=== PATIENT | female | born 1980 | race Caucasian/White ===

== ENCOUNTER 2019-11-22 08:06 | Inpatient (IN) | payer OTHER ==
[~2019-11-22] VITALS: Ht 167.6 cm; Wt 64.0 kg
[2019-11-22 08:52] LABS: BASOPHILS # (AUTO) 0.04 x10^3/uL (0-0.1); BASOPHILS % (AUTO) 1 % (0-1); EOSINOPHILS # (AUTO) 0.11 x10^3/uL (0-0.4); EOSINOPHILS % (AUTO) 2 % (1-7); LYMPHOCYTES # (AUTO) 2.01 x10^3/uL (1-3.4); LYMPHOCYTES % (AUTO) 35 % (22-44); MD NO; MEAN CORPUSCULAR HEMOGLOBIN 33.8 pg (27.0-34.8); MEAN CORPUSCULAR HGB CONC 33.9 g/dL (32.4-35.8); MEAN CORPUSCULAR VOLUME 99.6 fL (80-100); MEAN PLATELET VOLUME 7.8 fL (7.4-10.4); MONOCYTES # (AUTO) 0.49 x10^3/uL (0.2-0.8); MONOCYTES % (AUTO) 9 % (2-9); NEUTROPHILS # (AUTO) 3.12 x10^3/uL (1.8-6.8); NEUTROPHILS % (AUTO) 54 % (42-75); PLATELET COUNT 266 x10^3/uL (130-400); RED BLOOD COUNT 4.18 x10^6/uL (3.82-5.3); RED CELL DISTRIBUTION WIDTH 13.7 % (9.6-15.2)
--- NOTE | 2019-11-22 08:55 | NUR ---
REPORT RECEIVED FROM HARSHAD CORRAL; PT TO CT AT THIS TIME.
--- NOTE | 2019-11-22 08:58 | NUR ---
TO CT VIA [facility]
[2019-11-22] MEDS ORDERED: ENALAPRILAT 1.25 MG/ML, 2ML IV ONE (09:00)
[2019-11-22 09:03] LABS: ALANINE AMINOTRANSFERASE 25 U/L (12-78); ALBUMIN 4.1 g/dL (3.4-5.0); ANION GAP 8 mmol/L (5-15); CALCIUM 8.4 mg/dL (8.5-10.1); CHLORIDE 105 mmol/L (98-107); CREATININE 0.79 mg/dL (0.55-1.02)
--- NOTE | 2019-11-22 09:04 | NUR ---
REPORT TO MANDO PATRICIA
[2019-11-22 09:05] LABS: ALKALINE PHOSPHATASE 86 U/L (45-117); BILIRUBIN,TOTAL 0.4 mg/dL (0.2-1.0)
--- NOTE | 2019-11-22 09:08 | NUR ---
PT BACK FROM CT AT THIS TIME.
[2019-11-22] MEDS ORDERED: ENALAPRILAT 1.25 MG/ML, 1ML ONE (09:11)
--- NOTE | 2019-11-22 09:25 | NUR ---
pt on all monitors, pt is in sinus bernarda rate 50s with no ectopy on lunchroom monitor. pt iks a&ox4, repss even and unlabored, denies pain. 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 pt reports numbness to face is completely resolved, reports tingling still to left arm. awaiting CT and lab results at this time. call light in reach, at bedside.
--- NOTE | 2019-11-22 09:40 | NUR ---
MD informed that pt is still having tingling to left upper extremity, pt's symptomology discussed with MD. MD states pt does not meet criteria for code neuro at this time. MD informed of updated VS s/p vasotec. all results back, awaiting further orders at this time.
[2019-11-22] MEDS ORDERED: hydroxyzine PO (10:45)
--- NOTE | 2019-11-22 11:12 | NUR ---
REPORT GIVEN TO HARSHAD GRADY, PT AWAITING TRANSPORT AT THIS TIME.
--- NOTE | 2019-11-22 11:30 | NUR ---
PT TRANSFERRED TO ROOM 403, PT A&O, RESPS EVEN AND UNLABORED, NADN AT TRANSPORT. S/O WITH PT AT TRANSFER. PT HAS NO COMPLAINTS AT THIS TIME.
[2019-11-22 12:30] VITALS: BP 125/82
[2019-11-22] MEDS ORDERED: ACETAMINOPHEN 325 MG TABLET PO PRN (13:00)
[2019-11-22] MEDS ORDERED: POTASSIUM CHLORIDE 20 MEQ TAB.ER.PRT PO ONE (13:30)
[2019-11-22] MEDS ORDERED: GADOTERATE 7.5 MMOL/15 ML SYR ONE (13:45)
[2019-11-22 17:02] LABS: AMPHETAMINE SCREEN, URINE Negative (Negative); BARBITURATE SCREEN, URINE Negative (Negative); BENZODIAZEPINE SCREEN, URINE Negative (Negative); CANNABINOID SCREEN, URINE Positive (Negative); COCAINE SCREEN, URINE Negative (Negative); METHADONE SCREEN, URINE Negative (Negative); OPIATE SCREEN, URINE Negative (Negative)
[2019-11-22 20:00] VITALS: BP 141/90
[2019-11-23 05:25] LABS: BASOPHILS # (AUTO) 0.02 x10^3/uL (0-0.1); BASOPHILS % (AUTO) 0 % (0-1); EOSINOPHILS % (AUTO) 2 % (1-7); LYMPHOCYTES # (AUTO) 2.17 x10^3/uL (1-3.4); LYMPHOCYTES % (AUTO) 38 % (22-44); MD NO; MEAN CORPUSCULAR HEMOGLOBIN 33.9 pg (27.0-34.8); MEAN CORPUSCULAR HGB CONC 33.6 g/dL (32.4-35.8); MEAN CORPUSCULAR VOLUME 100.8 fL (80-100); MEAN PLATELET VOLUME 8.2 fL (7.4-10.4); MONOCYTES # (AUTO) 0.55 x10^3/uL (0.2-0.8); MONOCYTES % (AUTO) 10 % (2-9); NEUTROPHILS # (AUTO) 2.83 x10^3/uL (1.8-6.8); NEUTROPHILS % (AUTO) 50 % (42-75); PLATELET COUNT 244 x10^3/uL (130-400); RED BLOOD COUNT 4.02 x10^6/uL (3.82-5.3); RED CELL DISTRIBUTION WIDTH 13.1 % (9.6-15.2)
[2019-11-23 05:38] LABS: CHLORIDE 108 mmol/L (98-107)
[2019-11-23 05:49] LABS: ANION GAP 5 mmol/L (5-15); CREATININE 0.69 mg/dL (0.55-1.02)
[2019-11-23 05:50] LABS: ALANINE AMINOTRANSFERASE 26 U/L (12-78); ALBUMIN 3.8 g/dL (3.4-5.0); ALKALINE PHOSPHATASE 70 U/L (45-117); BILIRUBIN,TOTAL 0.6 mg/dL (0.2-1.0); CHOL/HDL RATIO 3.7; CHOLESTEROL, TOTAL 246 mg/dL (140-239); HDL CHOL % 27 % (28-40); HDL CHOLESTEROL (DIRECT) 66 mg/dL (40-60); LDL CHOLESTEROL,CALCULATED 154 mg/dL (54-169); LDL/HDL RATIO 2.3 (0.5-3.0); TOTAL PROTEIN 7.5 g/dL (6.4-8.2); TRIGLYCERIDES 130 mg/dL (50-200); VLDL CHOLESTEROL 26 mg/dL (0-25)
[2019-11-23] MEDS ORDERED: ASPIRIN 81 MG TABLET EC PO SCH (06:00)
[2019-11-23 07:15] VITALS: BP 135/93
[2019-11-23] MEDS ORDERED: ATOR40TA78 PO (10:49)
[2019-11-23] MEDS ORDERED: ASPI81TA45 PO (10:49)
== END 2019-11-23 12:11 | disposition home or self-care (01) | DRG 103 ==
LOC: ED 10:07 → EDIP 10:08 → ED 10:09 → 4WST 11:34 → DCLOUNGE 11-23 12:05
PROVIDERS: ADMIT Internal Medicine; ATTEND Family Medicine
DX: G43.109 Migraine with aura, not intractable, without status migrainosus (principal); G45.9 Transient cerebral ischemic attack, unspecified; I16.1 Hypertensive emergency; G46.0 Middle cerebral artery syndrome; E78.5 Hyperlipidemia, unspecified; F41.1 Generalized anxiety disorder; I10 Essential (primary) hypertension; I73.00 Raynaud's syndrome without gangrene
CPT/HCPCS: 36415; 70450; 70553; 71045; 80053; 80061; 80307; 83036; 83735; 84100; 84443; 84702; 85025; 93005; 93306; 93356; 93880; 96374; G0378; A9575

== ENCOUNTER → 2020-03-30 | Outpatient (CLI) | payer OTHER ==
[~2020-03-30] MED LIST: ASPI81TA45 PO; ATOR40TA78 PO; hydroxyzine PO
== END | disposition home or self-care (01) ==
LOC: CFH 14:36
PROVIDERS: ATTEND Internal Medicine
DX: Z12.31 Encounter for screening mammogram for malignant neoplasm of breast (principal)
CPT/HCPCS: 77067